=== PATIENT | female | born 1950 | race Caucasian/White ===

== ENCOUNTER → 2016-06-10 | Outpatient (CLI) | payer BC, OTHER ==
[~2016-06-10] MED LIST: CALC600T9 PO; FLUO20CA35 PO; MAGN250T3 PO; MULTTAB58 PO; OMEG12006 PO; OMEP40CA41 PO; POTA99TA PO; PRT/20 PO; TURM1CAP4 PO; VLT500 PO; [UNRECOGNIZED DRUG - OTHER] PO
--- NOTE | 2016-06-10 09:23 | DIAGNOSTIC IMAGING REPORT ---
BILIARY ULTRASOUND CLINICAL HISTORY: EPIGASTRIC PAIN, CHEST DISCOMFORT COMPARISON STUDY: No previous studies for comparison. FINDINGS: There is a 1 cm left lobe hepatic cyst. No solid hepatic masses are visualized. There is subtle heterogeneity in hepatic echotexture. There is no ductal dilatation. The gallbladder appears sonographically normal. The common bile duct measures 4 mm. The pancreas was poorly visualized. There is no right-sided hydronephrosis. IMPRESSION: 1. Nondiagnostic evaluation of the pancreas 2. Ultrasonographically normal gallbladder. No evidence of ductal dilatation. Electronically signed by: Austin Broussard M.D. 06/10/2016 9:22 AM Dictated Date/Time: 06/10/2016 9:20 AM
== END | disposition home or self-care (01) ==
LOC: C.ULTRBC 08:56
PROVIDERS: ATTEND Nurse Practitioner Family
DX: R10.13 Epigastric pain (principal); R07.89 Other chest pain

== ENCOUNTER 2016-06-27 18:05 | Emergency (ER) | payer BC, OTHER ==
[~2016-06-27] VITALS: Ht 177.8 cm; Wt 71.2 kg
[~2016-06-27 18:05] MED LIST changes: -OMEP40CA41 PO; -PRT/20 PO; -TURM1CAP4 PO; -[UNRECOGNIZED DRUG - OTHER] PO
[2016-06-27 18:16] VITALS: TEMP 36.7; Ht 177.8 cm; Wt 71.2 kg
[2016-06-27] MEDS ORDERED: [UNRECOGNIZED DRUG - OTHER] PO (18:32)
[2016-06-27] MEDS ORDERED: PRT/20 PO (18:34)
[2016-06-27] MEDS ORDERED: TURM1CAP4 PO (18:43)
[2016-06-27 18:57] LABS: BASO % 0.8 %; BASO ABS # 0.06 K/uL (0-0.2); COMPLETE YES; HEMATOCRIT 38.8 % (37-47); IG% 0.1 %; LYMPH ABS # 2.28 K/uL (1.2-3.4); MEAN CELL VOLUME 89.4 fL (80-100); MEAN CORPUSCULAR HEMOGLOBIN 30.4 pg (25-34); MEAN PLATELET VOLUME 10.1 fL (7.4-10.4); MONO % 6.3 %; NEUT % 59.8 %; PLATELET COUNT 318 K/uL (130-400); RED BLOOD COUNT 4.34 M/uL (4.2-5.4); WHITE BLOOD COUNT 7.36 K/uL (4.8-10.8)
--- NOTE | 2016-06-27 19:07 | DIAGNOSTIC IMAGING REPORT ---
SINGLE VIEW CHEST CLINICAL HISTORY: Atypical chest pain. FINDINGS: 2 AP, portable, upright chest radiographs are compared to study dated 10/29/2005. The examination is degraded by portable technique and patient rotation. The heart is mildly enlarged. The pulmonary vasculature is noncongested. Chronic interstitial thickening is unchanged. The lungs and pleural spaces are clear. No pneumothorax is seen. The skeletal structures are osteopenic. The bony thorax is grossly intact. IMPRESSION: Mild cardiac enlargement with no acute cardiopulmonary abnormality. Electronically signed by: Martin Morrell M.D. 06/27/2016 7:06 PM Dictated Date/Time: 06/27/2016 7:05 PM
[2016-06-27 19:15] LABS: URINE APPEARANCE CLEAR (CLEAR); URINE BILIRUBIN NEG (NEG); URINE COLOR YELLOW; URINE NITRITE NEG (NEG); URINE SPECIFIC GRAVITY 1.007 (1.000-1.030); UROBILINOGEN NEG (NEG); ZZUR CULT IF INDIC CLEAN CATCH NO
[2016-06-27 19:20] LABS: MANUAL MICROSCOPIC REQUIRED? NO; REVIEW REQ? NO
[2016-06-27 19:32] LABS: ALT/SGPT 22 U/L (12-78); AST/SGOT 15 U/L (15-37); BLOOD UREA NITROGEN 11 mg/dl (7-18); BUN/CREATININE RATIO 15.6 (10-20); CALCIUM 9.5 mg/dl (8.5-10.1); CARBON DIOXIDE 30 mmol/L (21-32); CHLORIDE 96 mmol/L (98-107); CREATININE 0.72 mg/dl (0.60-1.20); GLUCOSE 87 mg/dl (70-99); POTASSIUM 3.7 mmol/L (3.5-5.1); SODIUM 132 mmol/L (136-145)
[2016-06-27 19:37] LABS: ALB/GLOB RATIO 1.4 (0.9-2); ALKALINE PHOSPHATASE 68 U/L (45-117)
[2016-06-27] MEDS ORDERED: ALUMINUM/MAGNESIUM SUSP 30 ML UDC PO STA (19:37)
[2016-06-27] MEDS ORDERED: PANTOprazole INJ 40 MG in SYRINGE 0 ML IV ONE (19:45)
--- NOTE | 2016-06-27 20:11 | EMERGENCY ROOM VISIT NOTE ---
History Report prepared by Erik: Meron Carreon Under the Supervision of: Dr. Rama Leung D.O. 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 The patient states that the pain is waxing and waning and states it usually starts about 15 minutes after waking up. The patient states that today the pain worsened causing her to come into the ED. The patient states that the pain goes around her torso and today it went into her back and up into her right sided shoulder. The patient states that she also had jaw pain, flushed face. The patient states that the pain is currently a 1/10 but states it was up to about a 6/10 at its worst. The patient states that with her symptoms she also has intermittent tingling in her fingers and constant tingling in her toes. The patient states that she has also had a headache for a while but denies any fever, chills, vomiting, urinary symptoms, swelling or pain in arms or legs, or a change in bowel movements. The patient states that about a week ago she had an episode of lightheadedness while she was driving that came on suddenly and went away. The patient states that about 1 month ago she also was diagnosed with GERD when she had the upper abdominal pain and pain down her spine. She states she was given medication and it resolved the spine pain but the abdominal pain persisted,but states she does not take the medication regularly. She states that she also had further testing and it was discovered she had a cyst on her liver through an ultrasound and had an EKG that showed an inverted T. The patient states that she has a echocardiogram scheduled for July 21. The patent states she also has high cholesterol and a family history of heart disease. 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 lightheadedness episode. Patient denies any swelling or pain of the arms or legs, or change of bowel movements. Review of Systems See HPI for pertinent positives & negatives. A total of 10 systems reviewed and were otherwise negative. Past Medical & Surgical Medical Problems: (1) Kidney disease (2) Right low back pain (3) Right-sided chest wall pain Surgical Problems: (1) History of facial surgery (2) Hx of tubal ligation Family History Cancer Diabetes mellitus Heart disease Hypertension Social History Smoking Status: Current Some Day Smoker Alcohol Use: occasionally Marital Status: single Occupation Status: employed Current/Historical Medications Scheduled Calcium Carbonate-Vitamin D (Calcium + D), 1 TAB PO TID Multiple Vitamin (Multivitamin), 1 TAB PO DAILY Natural Bridge-3 Fatty Acids (Natural Bridge 3), 1 CAP PO TIDM Omeprazole (Prilosec), 40 MG PO DAILY Pantoprazole (Protonix), 20 MG PO DAILY Turmeric (Curcuma Longa) (Turmeric), 500 MG PO DAILY [Conjugated La], 1 CAP PO TID Miscellaneous Medications Fluoxetine (Prozac), 20 MG PO Allergies Coded Allergies: No Known Allergies (Unverified , 06/27/16) Physical Exam Vital Signs Date Time Temp Pulse Resp B/P Pulse Ox O2 Delivery O2 Flow Rate FiO2 06/27/16 20:33 56 15 149/82 97 06/27/16 19:58 54 20 140/77 97 Room Air 06/27/16 19:26 56 06/27/16 19:05 50 18 168/79 96 Room Air 06/27/16 18:16 36.7 59 18 166/87 98 Room Air Physical Exam GENERAL: alert, well appearing, well nourished, no distress, non-toxic EYE EXAM: normal conjunctiva, PERRL and EOM's grossly intact OROPHARYNX: no exudate, no erythema, lips, buccal mucosa, and tongue normal and mucous membranes are moist NECK: supple, no nuchal rigidity, no adenopathy, non-tender LUNGS: Clear to auscultation. Normal chest wall mechanics HEART: no murmurs, S1 normal and S2 normal ABDOMEN: abdomen soft, non-tender, no reproducible pain, normo-active bowel sounds, no masses, no rebound or guarding. BACK: Back is symmetrical on inspection and there is no deformity, no midline tenderness, no CVA tenderness. SKIN: no rashes and no bruising UPPER EXTREMITIES: upper extremities are grossly normal. LOWER EXTREMITIES: No pitting edema. NEURO EXAM: Normal sensorium, cranial nerves II-XII [grossly] intact, normal speech, no [gross] weakness of arms, no [gross] weakness of legs. [No drift. Finger to nose intact. Gross sensation intact.] Medical Decision & Procedures ER Provider Diagnostic Interpretation: Radiology results have been interpreted by the radiologist and reviewed by me. SINGLE VIEW CHEST CLINICAL HISTORY: Atypical chest pain. FINDINGS: 2 AP, portable, upright chest radiographs are compared to study dated 10/29/2005. The examination is degraded by portable technique and patient rotation. The heart is mildly enlarged. The pulmonary vasculature is noncongested. Chronic interstitial thickening is unchanged. The lungs and pleural spaces are clear. No pneumothorax is seen. The skeletal structures are osteopenic. The bony thorax is grossly intact. IMPRESSION: Mild cardiac enlargement with no acute cardiopulmonary abnormality. Electronically signed by: Martin Morrell M.D. 06/27/2016 7:06 PM Dictated Date/Time: 06/27/2016 7:05 PM Laboratory Results 06/27/16 18:50 Red Blood Count 4.34, Mean Corpuscular Volume 89.4, Mean Corpuscular Hemoglobin 30.4, Mean Corpuscular Hemoglobin Concent 34.0, Mean Platelet Volume 10.1, Neutrophils (%) (Auto) 59.8, Lymphocytes (%) (Auto) 31.0, Monocytes (%) (Auto) 6.3, Eosinophils (%) (Auto) 2.0, Basophils (%) (Auto) 0.8, Neutrophils # (Auto) 4.40, Lymphocytes # (Auto) 2.28, Monocytes # (Auto) 0.46, Eosinophils # (Auto) 0.15, Basophils # (Auto) 0.06 06/27/16 18:50 Test 06/27/16 18:50 06/27/16 19:00 White Blood Count 7.36 K/uL (4.8-10.8) Red Blood Count 4.34 M/uL (4.2-5.4) Hemoglobin 13.2 g/dL (12.0-16.0) Hematocrit 38.8 % (37-47) Mean Corpuscular Volume 89.4 fL (80-100) Mean Corpuscular Hemoglobin 30.4 pg (25-34) Mean Corpuscular Hemoglobin Concent 34.0 g/dl (32-36) Platelet Count 318 K/uL (130-400) Mean Platelet Volume 10.1 fL (7.4-10.4) Neutrophils (%) (Auto) 59.8 % Lymphocytes (%) (Auto) 31.0 % Monocytes (%) (Auto) 6.3 % Eosinophils (%) (Auto) 2.0 % Basophils (%) (Auto) 0.8 % Neutrophils # (Auto) 4.40 K/uL (1.4-6.5) Lymphocytes # (Auto) 2.28 K/uL (1.2-3.4) Monocytes # (Auto) 0.46 K/uL (0.11-0.59) Eosinophils # (Auto) 0.15 K/uL (0-0.5) Basophils # (Auto) 0.06 K/uL (0-0.2) RDW Standard Deviation 40.1 fL (36.4-46.3) RDW Coefficient of Variation 12.3 % (11.5-14.5) Immature Granulocyte % (Auto) 0.1 % Immature Granulocyte # (Auto) 0.01 K/uL (0.00-0.02) D-Dimer < 190 ug/L FEU (0-500) Anion Gap 6.0 mmol/L (3-11) Est Creatinine Clear Calc Drug Dose 84.2 ml/min Estimated GFR () 101.9 Estimated GFR (Non- 87.9 BUN/Creatinine Ratio 15.6 (10-20) Calcium Level 9.5 mg/dl (8.5-10.1) Total Bilirubin 0.3 mg/dl (0.2-1) Aspartate Amino Transf (AST/SGOT) 15 U/L (15-37) Alanine Aminotransferase (ALT/SGPT) 22 U/L (12-78) Alkaline Phosphatase 68 U/L (45-117) Troponin I < 0.015 ng/ml (0-0.045) Total Protein 7.2 gm/dl (6.4-8.2) Albumin 4.2 gm/dl (3.4-5.0) Globulin 3.0 gm/dl (2.5-4.0) Albumin/Globulin Ratio 1.4 (0.9-2) Lipase 157 U/L (73-393) Urine Color YELLOW Urine Appearance CLEAR (CLEAR) Urine pH 7.0 (4.5-7.5) Urine Specific [place] 1.007 (1.000-1.030) Urine Protein NEG (NEG) Urine Glucose (UA) NEG (NEG) Urine Ketones NEG (NEG) Urine Occult Blood NEG (NEG) Urine Nitrite NEG (NEG) Urine Bilirubin NEG (NEG) Urine Urobilinogen NEG (NEG) Urine Leukocyte Esterase NEG (NEG) Laboratory results per my review. Medications Administered Medications (Trade) Dose Ordered Sig/Melba Route Start Time Stop Time Status Last Admin Dose Admin Al Hydroxide/Mg Hydroxide 30 ml 30 ml NOW STAT PO 06/27/16 19:37 06/27/16 19:38 DC 06/27/16 19:58 30 ML Pantoprazole Sodium/Syringe (Protonix Inj/ Syringe) 10 ml @ 5 mls/min NOW ONCE IV 06/27/16 19:45 06/27/16 19:46 DC 06/27/16 19:58 5 MLS/MIN ECG Indication: abdominal pain Rate (beats per minute): 59 Rhythm: sinus bradycardia Findings: other (Normal axis, normal interval, T wave flattening in AVL, and slightly inverted in V2) ED Course 1826: The patient was evaluated in room C4. A complete history and physical exam was performed. 1936: Ordered Maalox Susp 30 ml PO. 1944: Ordered Pantoprazole Sodium 40 mg/ Syringe 10 ml @ 5 mls/min IV. 2000: I revaluated the patient and she states her pain is better. discussed the findings and the treatment plan with the patient. She states she has a follow up appointment with her PCP tomorrow. She verbalizes agreement and understanding. The patient was discharged home. Medical Decision The patient is a 66 year old female who presents to the ED with complaints of epigastric abdominal pain. Differential diagnoses include but is not limited to appendicitis, diverticulitis, PUD, biliary pathology, UTI, pancreatitis, obstruction, mesenteric ischemia, aortic pathology, ACS, infections, inflammatory bowel disease, renal colic, as well as others were entertained. Patient well-appearing here despite complaints. No reproducible pain, and pain had nearly resolved prior to my evaluation. Vital signs stable throughout. Patient hourly being evaluated as an outpatient given the pain as been ongoing for greater than 1 month. Labs here reassuring, including negative troponin. Doubt acute cardiac etiology, although discussed with patient additional cardiac follow-up could be advised given the Levaquin have atypical symptoms of ACS. Patient states she is already been referred to cardiology and has an outpatient echo scheduled. Patient has had a right upper quadrant ultrasound, discussed follow-up with family doctor for possible additional outpatient imaging including CAT scan. Patient's labs reassuring here and given negative exam at bedside, did not feel warranted emergent CT. Discussed with patient symptoms to watch and return for, she verbalized understanding was agreeable with plan. Doubt vascular etiology, occult infectious process. Patient advised to take pantoprazole daily instead of as needed. Patient does admit that pantoprazole did initially help with some of her symptoms. Patient not noticed any other changes. Doubt occult GI bleed. Patient able to her here with steady gait, tolerate by mouth at bedside, and stable for outpatient evaluation at this time. Impression Primary Impression: Abdominal pain Additional Impression: CHEST PAIN, UNSPECIFIED Scribe Attestation The scribe's documentation has been prepared under my direction and personally reviewed by me in its entirety. I confirm that the note above accurately reflects all work, treatment, procedures, and medical decision making performed by me. Departure Information Dispostion Home / Self-Care Prescriptions Omeprazole (PRILOSEC) 40 Mg Cap 40 MG PO DAILY, #30 CAP Prov: Rama Leung, DO 06/27/16 Referrals Gigi Saxena M.D. (PCP) Forms HOME CARE DOCUMENTATION FORM, IMPORTANT VISIT INFORMATION Patient Instructions My [facility] Additional Instructions Please keep your appointment with your family doctor tomorrow. Please consider follow-up with cardiology as well as GI given the chronicity of her symptoms. Please take your pantoprazole daily. Please continue to monitor your diet. Please drink plenty of water to stay well-hydrated. If you develop worsening pain, fevers, vomiting, noticed black or bloody stools, dizziness or episodes of blacking out, have pain radiating into your back, or you have any other new concerns, please return the emergency room. Problem Qualifiers Primary Impression: Abdominal pain Abdominal location: epigastric Qualified Codes: R10.13 - Epigastric pain
[2016-06-27] MEDS ORDERED: OMEP40CA41 PO (20:13)
[2016-06-27 20:33] VITALS: BP 149/82; PULSE 56; O2SAT 97
== END 2016-06-27 20:34 | disposition home or self-care (01) ==
LOC: C.EDB 18:06 → C.EDC 20:34
DX: R10.13 Epigastric pain (principal); M25.511 Pain in right shoulder; R68.84 Jaw pain; R51 Headache; R42 Dizziness and giddiness; K21.9 Gastro-esophageal reflux disease without esophagitis; Z79.899 Other long term (current) drug therapy; Z87.448 Personal history of other diseases of urinary system; Z87.898 Personal history of other specified conditions; Z82.49 Family history of ischemic heart disease and other diseases of the circulatory system; Z83.3 Family history of diabetes mellitus; F17.200 Nicotine dependence, unspecified, uncomplicated

== ENCOUNTER → 2016-07-19 | Outpatient (CLI) | payer BC ==
[~2016-07-19] MED LIST changes: -MAGN250T3 PO; -POTA99TA PO; +PRT/20 PO; +TURM1CAP4 PO; -VLT500 PO; +[UNRECOGNIZED DRUG - OTHER] PO
--- NOTE | 2016-07-19 15:19 | DIAGNOSTIC IMAGING REPORT ---
LUMBAR SPINE 5 VIEWS HISTORY: Pain M54.9 COMPARISON: None. FINDINGS: There is no fracture. No subluxation. Moderate to rather significant degenerative disc changes throughout. No evidence for compression deformity. Mild scoliosis. IMPRESSION: Degenerative change. Scoliosis. No acute process. Electronically signed by: Kwaku Tran M.D. 07/19/2016 3:18 PM Dictated Date/Time: 07/19/2016 3:16 PM
--- NOTE | 2016-07-19 15:20 | DIAGNOSTIC IMAGING REPORT ---
THORACIC SPINE 3 VIEWS ROUTINE CLINICAL HISTORY: Sudden onset back pain. COMPARISON STUDY: No previous studies for comparison. FINDINGS: Vertebral body heights are maintained. No fracture or suspicious lesion is present. Minimal degenerative disc disease is noted at several levels within the thoracic spine. Moderate degenerative disc disease is partially imaged within the cervical spine. IMPRESSION: 1. No thoracic spine fracture or subluxation. 2. Minimal degenerative disc disease of the thoracic spine. Electronically signed by: Mega Subramanian M.D. 07/19/2016 3:18 PM Dictated Date/Time: 07/19/2016 3:18 PM
== END | disposition home or self-care (01) ==
LOC: C.RAD1850 14:29
PROVIDERS: ATTEND Internal Medicine Gastroenterology
DX: R10.13 Epigastric pain (principal); M54.9 Dorsalgia, unspecified

== ENCOUNTER → 2016-07-28 | Outpatient (CLI) | payer BC ==
[~2016-07-28] MED LIST changes: +SINCALIDE INJ 1.4 MCG in SODIUM CHLORIDE 0.9% 100ML 100 ML IV SCH
--- NOTE | 2016-07-28 15:25 | DIAGNOSTIC IMAGING REPORT ---
NUCLEAR MEDICINE HEPATOBILIARY SCAN WITH EJECTION FRACTION HISTORY: Epigastric abdominal pain. COMPARISON: Abdominal ultrasound 06/10/2016. TECHNIQUE: Immediately following the intravenous administration of 5.5 mCi Tc-99m Choletec, dynamic anterior abdominal imaging pre/post 1.4 mcg of Kinevac was performed. FINDINGS: Uniform hepatic tracer accumulation is shown. Prompt intrahepatic biliary excretion is seen. The gallbladder, common bile duct, and small bowel are all visualized by 30 minutes. This appearance represents the normal sequence of biliary excretion. The gall bladder ejection fraction following administration of Kinevac was 39% (normal >35%). IMPRESSION: 1. No evidence for cystic duct obstruction. 2. Gallbladder ejection fraction calculated to be 39 %. Electronically signed by: Dionicio Law M.D. 07/28/2016 3:24 PM Dictated Date/Time: 07/28/2016 3:23 PM
== END | disposition home or self-care (01) ==
LOC: C.NUCL 12:26
PROVIDERS: ATTEND Internal Medicine Gastroenterology
DX: R10.13 Epigastric pain (principal)

== ENCOUNTER → 2016-10-04 | Outpatient (CLI) | payer BC ==
[~2016-10-04] MED LIST changes: -SINCALIDE INJ 1.4 MCG in SODIUM CHLORIDE 0.9% 100ML 100 ML IV SCH
--- NOTE | 2016-10-05 16:01 | MAMMOGRAPHY REPORT ---
BILATERAL DIGITAL SCREENING MAMMOGRAM WITH CAD: 10/04/2016 CLINICAL HISTORY: Routine screening. Patient has no complaints. TECHNIQUE: Bilateral CC and MLO views were obtained. Current study was also evaluated with a Compute r Aided Detection (CAD) system. COMPARISON: Comparison is made to exams dated: 06/11/1999 mammogram and 05/30/2005 mammogram - [facility]. BREAST COMPOSITION: The tissue of both breasts is heterogeneously dense, which may obscure small mas ses. FINDINGS: There is decreasing nodularity of the left breast. A stable circumscribed 2.3 cm mass in t he right upper outer quadrant posteriorly. A few benign appearing calcifications in the breasts. No new suspicious mass, architectural distortion or cluster of microcalcifications is seen. IMPRESSION: ACR BI-RADS CATEGORY 1: NEGATIVE There is no mammographic evidence of malignancy. A 1 year screening mammogram is recommended. The pa tient will receive written notification of the results. Approximately 10% of breast cancers are not detected with mammography. A negative mammographic report should not delay biopsy if a clinically suggestive mass is present. Margaret Wilhelm M.D. ay/:10/04/2016 16:15:09 Eye Specialist: Kareen Bustamante RT(R)(M), [facility] letter sent: Normal 1/2 BI-RADS Code: ACR BI-RADS Category 1: Negative
== END | disposition home or self-care (01) ==
LOC: C.MAMM 14:35
PROVIDERS: ATTEND Nurse Practitioner Family
DX: Z12.31 Encounter for screening mammogram for malignant neoplasm of breast (principal)

== ENCOUNTER → 2016-10-06 | Outpatient (CLI) | payer BC | END | disposition home or self-care (01) | LOC: C.PAPS 14:04 | PROVIDERS: ATTEND Obstetrics & Gynecology | DX: Z01.419 Encounter for gynecological examination (general) (routine) without abnormal findings (principal) ==

== ENCOUNTER → 2016-10-27 | Outpatient (CLI) | payer BC | END | disposition home or self-care (01) | LOC: C.MAMM 08:19 | PROVIDERS: ATTEND Nurse Practitioner Family | DX: Z78.0 Asymptomatic menopausal state (principal); M81.0 Age-related osteoporosis without current pathological fracture; M85.851 Other specified disorders of bone density and structure, right thigh ==

== ENCOUNTER → 2017-08-31 | Outpatient (CLI) | payer BC | END | disposition home or self-care (01) | LOC: C.PATHSPEC 17:44 | PROVIDERS: ATTEND Dentist Oral and Maxillofacial Surgery | DX: D10.0 Benign neoplasm of lip (principal) ==